=== PATIENT | male | born 1990 | race Caucasian/White ===

== ENCOUNTER 2017-03-23 13:18 | Emergency (ER) | payer BC ==
[~2017-03-23] VITALS: Ht 172.7 cm; Wt 68.0 kg
[2017-03-23 13:32] VITALS: BP 128/92
[2017-03-23] MEDS ORDERED: MORPHINE SULFATE 4 MG/ML DISP.SYRIN. IV/SQ PRN (13:45)
[2017-03-23] MEDS ORDERED: methylPREDNISolone SOD SUCC PF 125 MG/2 ML VIAL. IV ONE (13:45)
[2017-03-23] MEDS ORDERED: IV NORMAL SALINE 1,000ML 1,000 ML IV SCH (14:00)
[2017-03-23] MEDS ORDERED: AMPICILLIN/SULBACTAM 3 GM in IV NORMAL SALINE 100ML 100 ML IV ONE (14:00)
[2017-03-23] MEDS ORDERED: ACETAMINOPHEN 500 MG TABLET PO ONE (14:00)
[2017-03-23] MEDS ORDERED: LIDO:MAALOX 1:1 20 ML SINGLE DOSE PO ONE (14:00)
[2017-03-23 14:13] LABS: BASO % 0 % (0-3); EOS % 0 % (0-3); HEMATOCRIT 45.4 % (39.0-53.0); HEMOGLOBIN 15.8 g/dL (13.0-17.5); LYMPH # 1.5 x10^3/uL (1.0-4.8); LYMPH % 11 % (24-48); MEAN CORPUSCULAR HEMOGLOBIN 31 pg (25-35); MEAN CORPUSCULAR HGB CONC 35 g/dL (31-37); MEAN CORPUSCULAR VOLUME 89 fL (79-100); MONO # 1.4 x10^3/uL (0.0-1.1); MONO % 11 % (0-9); NEUT % 77 % (31-73); PLATELET COUNT 151 x10^3/uL (140-400); RED CELL DISTRIBUTION WIDTH 13.7 % (11.5-14.5); WHITE BLOOD COUNT 12.9 x10^3/uL (4.0-11.0)
[2017-03-23 14:22] LABS: ALBUMIN 3.8 g/dL (3.4-5.0); ALBUMIN/GLOBULIN RATIO 0.9 (1.0-1.7); CALCIUM 8.7 mg/dL (8.5-10.1); GFR 89.6; POTASSIUM 3.6 mmol/L (3.5-5.1); TOTAL BILIRUBIN 0.5 mg/dL (0.2-1.0); TOTAL PROTEIN 7.9 g/dL (6.4-8.2)
--- NOTE | 2017-03-23 15:27 | PHYS DOC ---
General Chief Complaint: SORE THROAT Stated Complaint: SWOLLEN TONSIL, BODY ACHES Time Seen by MD: 13:45 Source: patient Exam Limitations: no limitations Problems: History of Present Illness Initial Comments Pt is 26/M to ED c/o sore throat. Pt states he's had sore throat since Friday. Past two days he's had chills and sweats, he says he was sent home from work yesterday because he wasn't feeling well. Throat hurts worse on the right, he complains of severe pain with swallowing but denies SOB/cheng. He had mono in the past, he's been drinking fluids but not eating much due to pain. He smoked cigarettes immediately prior to ED arrival. Allergies: Coded Allergies: No Known Drug Allergies (Unverified , 03/23/17) Past Medical History Medical History: no pertinent history (mono in past) Surgical History: noncontributory Social History Smoker: cigarettes Alcohol: occasionally Drugs: none Constitutional: see HPI Ears: denies dizziness, denies pain, denies tinnitus Nose: denies clots, denies congestion, denies epistaxis Throat: see HPI, denies neck stiffness, denies difficulty with fluids Respiratory: denies cough, denies orthopnea, denies shortness of breath, denies stridor, denies wheezing Cardiovascular: denies chest pain, denies palpitations, denies syncope Gastrointestinal: denies diarrhea, denies nausea, denies vomiting Musculoskeletal: see HPI Neurological: headache, denies numbness, denies paresthesia Physical Exam General Appearance: WD/WN, no apparent distress Eyes: bilateral eye normal inspection, bilateral eye PERRL, bilateral eye EOMI Nose: normal inspection Mouth/Throat: other (tonsillar erythema/exudate R>L, tonsils 2+ no airway compromise) Neck: supple, trachea midline, lymphadenopathy (R), lymphadenopathy (L) Cardiovascular/Respiratory: normal breath sounds, no respiratory distress Neurologic/Psychiatric: director global II-XII nml as tested, no motor/sensory deficits, alert, normal mood/affect, oriented x 3 Skin: normal color, warm/dry Orders, Labs, Meds WBC 12.9, otherwise reassuring workup. Pt received solumedrol 125mg IV, NS 1L IV, unasyn IV, and tylenol 1g PO. 1527: Pt rechecked, feeling better. HR 92, tonsillar swelling has receded to 2 +, currently 98% RA. I discussed possibility of observation admission however pt would like to go home. His VS have normalized and airway patent I agree pt is stable to go home. He will stay with his dad, drink lots of fluids and f/u closely with his PCP. He agrees not to smoke cigarettes until he recovers and to return to ED if needed. Departure Time of Disposition: 15:24 Disposition: 01 HOME, SELF-CARE Diagnosis: tonsillitis Condition: GOOD Patient Instructions: Tonsillitis, Aoty-gi-Sdws Additional Instructions: Rest, no strenuous activity. Aggressive hydration with gatorade, water. OTC tylenol/ibuprofen/analgesic throat sprays as needed. Rx: bactrim ds, prednisone, guaif/cod 100/30 #180ml Off work thru 03/26. Follow up with your doctor in 1-2 days. Return to ED with new or changing symptoms. PIERRE PERDUE DO Mar 23, 2017 15:27
[2017-03-23] MEDS ORDERED: guaiFENesin/CODEINE 100mg/10mg 5 ML LIQUID PO ONE (15:30)
[2017-03-23] MEDS ORDERED: predniSONE 20 MG TABLET PO ONE (15:30)
== END 2017-03-23 15:40 | disposition home or self-care (01) ==
LOC: ER 13:18
DX: J03.90 Acute tonsillitis, unspecified (principal); F17.210 Nicotine dependence, cigarettes, uncomplicated
CPT/HCPCS: 36415; 80053; 85025; 96365; 96375; 99284; J0295; J2930; J7512; J7030